=== PATIENT | male | born 2000 | race Hispanic/Latino ===

== ENCOUNTER 2018-08-12 13:11 | Emergency (ER) | payer OTHER | END 2018-08-12 13:52 | disposition home or self-care (01) | LOC: EDH 13:11 | DX: S01.531A Puncture wound without foreign body of lip, initial encounter (principal); L08.9 Local infection of the skin and subcutaneous tissue, unspecified; Y04.2XXA Assault by strike against or bumped into by another person, initial encounter; Y93.89 Activity, other specified; Y92.89 Other specified places as the place of occurrence of the external cause; Y99.9 Unspecified external cause status ==